=== PATIENT | female | born 1955 | race Caucasian/White ===

== ENCOUNTER → 2017-11-26 | Outpatient (CLI) | payer OTHER | END | disposition home or self-care (01) | LOC: LAB 10:02 | PROVIDERS: ATTEND Neurological Surgery | DX: Z01.818 Encounter for other preprocedural examination (principal); R91.8 Other nonspecific abnormal finding of lung field; M51.36 Other intervertebral disc degeneration, lumbar region | CPT/HCPCS: 71046 ==

== ENCOUNTER 2017-12-03 05:39 | Inpatient (IN) | payer OTHER ==
[~2017-12-03] VITALS: Ht 185.4 cm; Wt 65.7 kg
[2017-12-03] MEDS ORDERED: LACTATED RINGERS 1,000 ML IV SCH (06:06)
[2017-12-03] MEDS ORDERED: TIOT18CA INH (06:09)
[2017-12-03] MEDS ORDERED: SUMA25TA4 PO (06:09)
[2017-12-03] MEDS ORDERED: ALBU2TAB PO (06:09)
[2017-12-03] MEDS ORDERED: FLUT1AER INH (06:09)
[2017-12-03] MEDS ORDERED: GABA300C10 PO (06:09)
[2017-12-03] MEDS ORDERED: THROMBIN 20,000 UNIT VIAL TP ONE (06:22)
[2017-12-03] MEDS ORDERED: HEPARIN 1,000 UNITS/ML, 30ML ONE ×2 (06:22→07:36)
[2017-12-03] MEDS ORDERED: BACITRACIN 50,000 UNIT ONE (06:23)
[2017-12-03] MEDS ORDERED: MIDAZOLAM 1 MG/ML, 2ML ONE (06:33)
[2017-12-03] MEDS ORDERED: FENTANYL PF 250 MCG/5ML ONE (06:33)
[2017-12-03 06:39] VITALS: BP 116/70
[2017-12-03] MEDS ORDERED: OxyconTIN ER 10 MG TAB.ER ONE (06:57)
[2017-12-03] MEDS ORDERED: ACETAMINOPHEN 500 MG TABLET ONE (06:57)
[2017-12-03] MEDS ORDERED: ACETAMINOPHEN 500 MG TABLET PO ONE (07:00)
[2017-12-03] MEDS ORDERED: GABAPENTIN 300 MG CAPSULE PO ONE (07:00)
[2017-12-03] MEDS ORDERED: OxyconTIN ER 10 MG TAB.ER PO ONE (07:00)
[2017-12-03] MEDS ORDERED: PROPOFOL 10 MG/ML, 20ML ONE (07:11)
[2017-12-03] MEDS ORDERED: DEXAMETHASONE 4 MG/ML, 1ML ONE (07:11)
[2017-12-03] MEDS ORDERED: CEFAZOLIN 1,000 MG ONE (07:11)
[2017-12-03] MEDS ORDERED: EPHEDRINE 50 MG/ML, 1ML ONE (07:11)
[2017-12-03] MEDS ORDERED: ROCURONIUM 10 MG/ML,10ML ONE (07:11)
[2017-12-03] MEDS ORDERED: HYDROmorphone 1 MG/ML, 1ML IV PRN (08:00)
[2017-12-03] MEDS ORDERED: OXYcodone 5 MG/5 ML ORAL.SOL UDC PO PRN (08:00)
[2017-12-03] MEDS ORDERED: MEPERIDINE/PF 25MG/0.5ML IVPush PRN (08:00)
[2017-12-03] MEDS ORDERED: ALBUTEROL SULFATE 2.5 MG/3 ML NPPB PRN (08:00)
[2017-12-03] MEDS ORDERED: hydrALAzine 20 MG/ML, 1ML IV PRN (08:00)
[2017-12-03] MEDS ORDERED: LABETALOL 5MG/ML, 20ML IV PRN ×2 (08:00→11:30)
[2017-12-03] MEDS ORDERED: PROMETHAZINE 25 MG/ML, 1ML IV PRN (08:00)
[2017-12-03] MEDS ORDERED: LORazepam 2 MG/ML, 1ML IVPush PRN (08:00)
[2017-12-03] MEDS ORDERED: PROMETHAZINE 12.5 MG SUPP PR PRN (08:00)
[2017-12-03] MEDS ORDERED: OXYcodone 5 MG/5 ML ORAL.SOL UDC ONE (09:32)
[2017-12-03] MEDS ORDERED: FENTANYL PF 100 MCG/2ML ONE (09:32)
[2017-12-03] MEDS: FENTANYL PF 100 MCG/2ML IV PRN ×3 (09:38→09:56)
[2017-12-03] MEDS ORDERED: METHOCARBAMOL 750 MG TABLET ONE (10:11)
[2017-12-03] MEDS ORDERED: METHOCARBAMOL 750 MG TABLET PO PRN ×2 (10:30→11:30)
[2017-12-03 10:40] VITALS: BP 113/69
[2017-12-03] MEDS ORDERED: HYDROcodone/APAP 5/325 TABLET PO PRN (11:30)
[2017-12-03] MEDS ORDERED: ONDANSETRON ODT 4 MG PO PRN (11:30)
[2017-12-03] MEDS ORDERED: ALBUTEROL 4 MG TABLET PO PRN (11:30)
[2017-12-03] MEDS ORDERED: DIPHENHYDRAMINE 50 MG/ML, 1ML IV PRN (11:30)
[2017-12-03] MEDS ORDERED: morphine SULFATE 10 MG/ML, 1ML IV PRN (11:30)
[2017-12-03] MEDS ORDERED: MAGNESIUM HYDROXIDE 8%, 30ML UDC PO PRN (11:30)
[2017-12-03] MEDS ORDERED: BISACODYL 10 MG SUPP PR PRN (11:30)
[2017-12-03] MEDS ORDERED: ONDANSETRON 2MG/ML, 2ML IV PRN (11:30)
[2017-12-03] MEDS: HYDROcodone/APAP 10/325 MG TABLET PO PRN ×4 (12:57→23:35)
[2017-12-03] MEDS: METOCLOPRAMIDE 5 MG/ML, 2ML IV SCH ×2 (12:57→20:45)
[2017-12-03] MEDS ORDERED: ALBUTEROL/IPRATROPIUM 2.5MG/0.5MG, 3 ML NPPB PRN (13:30)
[2017-12-03 13:31] VITALS: BP 93/53
[2017-12-03] MEDS: CEFAZOLIN PMX 1GM/50ML 50 ML IVPB SCH ×2 (14:48→23:36)
[2017-12-03] MEDS: D5%-0.9% NACL+KCL 20MEQ 1,000 ML IV SCH ×2 (14:48→21:30)
[2017-12-03] MEDS: GABAPENTIN 300 MG CAPSULE PO SCH ×2 (17:14→20:46)
[2017-12-03 18:36] VITALS: BP 90/92
[2017-12-03] MEDS: FAMOTIDINE 20 MG TABLET PO SCH (20:45)
[2017-12-04 00:02] VITALS: BP 97/52
[2017-12-04 04:00] VITALS: BP 96/52
[2017-12-04] MEDS: METOCLOPRAMIDE 5 MG/ML, 2ML IV SCH (04:43)
[2017-12-04] MEDS: HYDROcodone/APAP 10/325 MG TABLET PO PRN ×4 (04:43→22:14)
[2017-12-04 05:13] LABS: BASOPHILS # (AUTO) 0.01 x10^3/uL (0-0.1); BASOPHILS % (AUTO) 0 % (0-1); EOSINOPHILS # (AUTO) 0.07 x10^3/uL (0-0.4); EOSINOPHILS % (AUTO) 1 % (1-7); LYMPHOCYTES # (AUTO) 1.54 x10^3/uL (1-3.4); LYMPHOCYTES % (AUTO) 21 % (22-44); MD NO; MEAN CORPUSCULAR HGB CONC 33.1 g/dL (32.4-35.8); MEAN CORPUSCULAR VOLUME 96.7 fL (80-100); MEAN PLATELET VOLUME 7.5 fL (7.4-10.4); MONOCYTES # (AUTO) 0.83 x10^3/uL (0.2-0.8); MONOCYTES % (AUTO) 11 % (2-9); NEUTROPHILS # (AUTO) 4.93 x10^3/uL (1.8-6.8); NEUTROPHILS % (AUTO) 67 % (42-75); PLATELET COUNT 201 x10^3/uL (130-400); RED BLOOD COUNT 3.48 x10^6/uL (3.82-5.3); RED CELL DISTRIBUTION WIDTH 14.3 % (9.6-15.2)
[2017-12-04 05:25] LABS: ANION GAP 6 mmol/L (5-15); CALCIUM 8.3 mg/dL (8.5-10.1); CHLORIDE 108 mmol/L (98-107); CREATININE 0.78 mg/dL (0.55-1.02)
[2017-12-04] MEDS: ENOXAPARIN 30 MG/0.3 ML SQ SCH ×2 (06:46→17:31)
[2017-12-04 07:07] VITALS: BP 92/55
[2017-12-04] MEDS: D5%-0.9% NACL+KCL 20MEQ 1,000 ML IV SCH ×2 (07:30→17:30)
[2017-12-04] MEDS: FLUTICASONE/VILANTEROL 100-25MCG/INH INH SCH (09:00)
[2017-12-04] MEDS: TEMPLATE NON-FORMULARY MED. (SPIRIVA 1 INH) INH SCH (09:00)
[2017-12-04] MEDS: GABAPENTIN 300 MG CAPSULE PO SCH ×3 (09:21→22:09)
[2017-12-04] MEDS: FAMOTIDINE 20 MG TABLET PO SCH ×2 (09:21→22:09)
[2017-12-04] MEDS: SENNA/DOCUSATE TABLET PO SCH (09:21)
[2017-12-04] MEDS: DOXYCYCLINE 100MG TABLET PO SCH ×2 (09:57→22:09)
[2017-12-04] MEDS: SUMATRIPTAN 25 MG TABLET PO SCH (09:57)
[2017-12-04] MEDS ORDERED: METOCLOPRAMIDE 5 MG/ML, 2ML IV PRN (11:30)
[2017-12-04 18:40] VITALS: BP 107/64
[2017-12-04] MEDS: DIPHENHYDRAMINE 25 MG CAPSULE PO PRN (22:09)
[2017-12-05 02:02] VITALS: BP 95/54
[2017-12-05] MEDS: DIPHENHYDRAMINE 25 MG CAPSULE PO PRN ×2 (02:28→22:12)
[2017-12-05] MEDS: D5%-0.9% NACL+KCL 20MEQ 1,000 ML IV SCH ×3 (03:27→23:30)
[2017-12-05 05:16] LABS: BASOPHILS # (AUTO) 0.03 x10^3/uL (0-0.1); BASOPHILS % (AUTO) 0 % (0-1); EOSINOPHILS # (AUTO) 0.22 x10^3/uL (0-0.4); EOSINOPHILS % (AUTO) 2 % (1-7); LYMPHOCYTES # (AUTO) 1.26 x10^3/uL (1-3.4); LYMPHOCYTES % (AUTO) 14 % (22-44); MD NO; MEAN CORPUSCULAR HEMOGLOBIN 31.6 pg (27.0-34.8); MEAN CORPUSCULAR HGB CONC 33.1 g/dL (32.4-35.8); MEAN CORPUSCULAR VOLUME 95.6 fL (80-100); MEAN PLATELET VOLUME 7.8 fL (7.4-10.4); MONOCYTES # (AUTO) 1.19 x10^3/uL (0.2-0.8); MONOCYTES % (AUTO) 13 % (2-9); NEUTROPHILS # (AUTO) 6.58 x10^3/uL (1.8-6.8); NEUTROPHILS % (AUTO) 71 % (42-75); PLATELET COUNT 190 x10^3/uL (130-400); RED BLOOD COUNT 3.57 x10^6/uL (3.82-5.3)
[2017-12-05 05:28] LABS: ANION GAP 7 mmol/L (5-15); CALCIUM 8.7 mg/dL (8.5-10.1); CHLORIDE 105 mmol/L (98-107); CREATININE 0.82 mg/dL (0.55-1.02)
[2017-12-05] MEDS: ENOXAPARIN 30 MG/0.3 ML SQ SCH ×2 (06:23→18:17)
[2017-12-05] MEDS: HYDROcodone/APAP 10/325 MG TABLET PO PRN ×2 (06:23→20:24)
[2017-12-05 08:52] LABS: INTERNATIONAL NORMALIZED RATIO 1.05 (0.93-1.1); PROTHROMBIN TIME 10.8 Seconds (9.6-11.5)
[2017-12-05] MEDS: TEMPLATE NON-FORMULARY MED. (SPIRIVA 1 INH) INH SCH (09:00)
[2017-12-05] MEDS: FLUTICASONE/VILANTEROL 100-25MCG/INH INH SCH (09:00)
[2017-12-05 09:44] VITALS: BP 118/69
[2017-12-05] MEDS: GABAPENTIN 300 MG CAPSULE PO SCH ×3 (09:52→20:24)
[2017-12-05] MEDS: FAMOTIDINE 20 MG TABLET PO SCH ×2 (09:52→20:24)
[2017-12-05] MEDS: DOXYCYCLINE 100MG TABLET PO SCH ×2 (09:52→20:24)
[2017-12-05] MEDS: SENNA/DOCUSATE TABLET PO SCH (09:52)
[2017-12-05] MEDS: SUMATRIPTAN 25 MG TABLET PO SCH (09:52)
[2017-12-05 13:45] VITALS: BP 103/63
[2017-12-05 18:50] VITALS: BP 100/68
[2017-12-06 00:53] VITALS: BP 113/52
[2017-12-06] MEDS: ENOXAPARIN 30 MG/0.3 ML SQ SCH (01:31)
[2017-12-06 05:19] LABS: BASOPHILS # (AUTO) 0.02 x10^3/uL (0-0.1); BASOPHILS % (AUTO) 0 % (0-1); EOSINOPHILS % (AUTO) 1 % (1-7); LYMPHOCYTES # (AUTO) 1.18 x10^3/uL (1-3.4); LYMPHOCYTES % (AUTO) 13 % (22-44); MD NO; MEAN CORPUSCULAR HEMOGLOBIN 31.2 pg (27.0-34.8); MEAN CORPUSCULAR VOLUME 94.4 fL (80-100); MEAN PLATELET VOLUME 7.5 fL (7.4-10.4); MONOCYTES # (AUTO) 1.16 x10^3/uL (0.2-0.8); MONOCYTES % (AUTO) 13 % (2-9); NEUTROPHILS # (AUTO) 6.69 x10^3/uL (1.8-6.8); NEUTROPHILS % (AUTO) 73 % (42-75); PLATELET COUNT 206 x10^3/uL (130-400); RED BLOOD COUNT 3.67 x10^6/uL (3.82-5.3); RED CELL DISTRIBUTION WIDTH 13.8 % (9.6-15.2)
[2017-12-06 05:29] LABS: ANION GAP 8 mmol/L (5-15); CALCIUM 8.7 mg/dL (8.5-10.1); CHLORIDE 105 mmol/L (98-107); CREATININE 0.77 mg/dL (0.55-1.02)
[2017-12-06] MEDS ORDERED: EPINEPHRINE 1 MG/ML, 1ML ONE (06:23)
[2017-12-06] MEDS ORDERED: THROMBIN 5,000 UNIT VIAL TP ONE (06:23)
[2017-12-06] MEDS ORDERED: BUPIVACAINE/PF 0.5% ONE (06:23)
[2017-12-06] MEDS ORDERED: BACITRACIN 50,000 UNIT ONE (06:23)
[2017-12-06] MEDS ORDERED: BUPIVACAINE 0.25% ONE (06:23)
[2017-12-06] MEDS ORDERED: MIDAZOLAM 1 MG/ML, 2ML ONE (06:35)
[2017-12-06] MEDS ORDERED: FENTANYL PF 250 MCG/5ML ONE (06:36)
[2017-12-06] MEDS ORDERED: PROPOFOL 50 ML ONE ×3 (06:37→10:00)
[2017-12-06] MEDS ORDERED: PROPOFOL 10 MG/ML, 20ML ONE (06:37)
[2017-12-06] MEDS ORDERED: LIDOCAINE-MPF 2% ,5ML ONE (06:37)
[2017-12-06] MEDS ORDERED: SUCCINYLCHOLINE 20 MG/ML, 10ML ONE (06:38)
[2017-12-06] MEDS ORDERED: CEFAZOLIN 1,000 MG ONE ×2 (06:38)
[2017-12-06] MEDS ORDERED: WATER-INJECTION,STERILE 10 ML IV ONE (06:38)
[2017-12-06] MEDS ORDERED: PHENYLEPHRINE 10 MG/ML ONE ×3 (06:40→08:51)
[2017-12-06] MEDS ORDERED: REMIFENTANIL 2 MG ONE ×2 (06:43→09:26)
[2017-12-06] MEDS ORDERED: DEXAMETHASONE 4 MG/ML, 1ML ONE ×2 (06:44)
[2017-12-06] MEDS ORDERED: OxyconTIN ER 20 MG TAB.ER ONE (06:50)
[2017-12-06] MEDS ORDERED: ACETAMINOPHEN 500 MG TABLET ONE (06:51)
[2017-12-06] MEDS ORDERED: HEPARIN 1,000 UNITS/ML, 30ML ONE (06:57)
[2017-12-06] MEDS ORDERED: METOPROLOL 1 MG/ML, 5ML ONE (07:09)
[2017-12-06] MEDS ORDERED: ACETAMINOPHEN 500 MG TABLET PO ONE (07:30)
[2017-12-06] MEDS ORDERED: GABAPENTIN 300 MG CAPSULE PO ONE ×2 (07:30)
[2017-12-06] MEDS ORDERED: OxyconTIN ER 20 MG TAB.ER PO ONE (07:30)
[2017-12-06] MEDS ORDERED: ONDANSETRON ODT 8 MG PO ONE (07:30)
[2017-12-06] MEDS ORDERED: AMIODARONE 50 MG/ML, 3ML ONE (08:00)
[2017-12-06] MEDS ORDERED: BUPIVACAINE/PF 0.5% INFIL ONE ×2 (08:19→08:20)
[2017-12-06] MEDS ORDERED: EPINEPHRINE 1 MG/ML, 1ML INFIL ONE (08:21)
[2017-12-06] MEDS ORDERED: BUPIVACAINE/PF 0.25% EPIDPUSH ONE (08:22)
[2017-12-06] MEDS ORDERED: FENTANYL PF 100 MCG/2ML EPIDPUSH ONE (08:22)
[2017-12-06] MEDS: GABAPENTIN 300 MG CAPSULE PO SCH ×3 (09:00→20:15)
[2017-12-06] MEDS ORDERED: FENTANYL PF 100 MCG/2ML ONE (10:01)
[2017-12-06] MEDS ORDERED: IPRATROPIUM 0.5 MG/2.5 ML INHA HHN SCH (12:00)
[2017-12-06] MEDS ORDERED: SENNA/DOCUSATE TABLET PO PRN (12:00)
[2017-12-06] MEDS ORDERED: PROMETHAZINE 25 MG/ML, 1ML IM PRN (12:00)
[2017-12-06] MEDS ORDERED: LABETALOL 5MG/ML, 20ML IVPush PRN (12:00)
[2017-12-06] MEDS ORDERED: MEPERIDINE/PF 25MG/0.5ML IVPush PRN (12:00)
[2017-12-06] MEDS ORDERED: PHARMACY MAY ADJ FOR RENAL FX MC PRN (12:00)
[2017-12-06] MEDS ORDERED: DIPHENHYDRAMINE 50 MG/ML, 1ML IVPush PRN (12:00)
[2017-12-06] MEDS ORDERED: ALBUTEROL SULFATE 2 MG PO PRN (12:00)
[2017-12-06] MEDS ORDERED: BISACODYL 10 MG SUPP PR PRN (12:00)
[2017-12-06] MEDS ORDERED: morphine SULFATE 10 MG/ML, 1ML IV PRN (12:00)
[2017-12-06] MEDS ORDERED: EPHEDRINE 50 MG/ML, 1ML IVPush PRN (12:00)
[2017-12-06] MEDS ORDERED: morphine SULFATE 10 MG/ML, 1ML IVPush PRN (12:00)
[2017-12-06] MEDS ORDERED: ALBUTEROL SULFATE 2.5 MG/3 ML NPPB PRN (12:00)
[2017-12-06] MEDS ORDERED: ACETAMINOPHEN 325 MG TABLET PO PRN (12:00)
[2017-12-06] MEDS ORDERED: OXYcodone 5 MG/5 ML ORAL.SOL UDC PO PRN (12:00)
[2017-12-06] MEDS ORDERED: PROMETHAZINE 25 MG/ML, 1ML IV PRN (12:00)
[2017-12-06] MEDS ORDERED: FENTANYL PF 100 MCG/2ML IV PRN (12:00)
[2017-12-06 14:08] VITALS: BP 97/54
[2017-12-06] MEDS: D5%-0.9% NACL+KCL 20MEQ 1,000 ML IV SCH ×2 (14:12→14:43)
[2017-12-06] MEDS ORDERED: SUMATRIPTAN 50 MG TABLET ONE (14:16)
[2017-12-06] MEDS: FAMOTIDINE 20 MG TABLET PO SCH ×2 (14:41→20:15)
[2017-12-06] MEDS: DOXYCYCLINE 100MG TABLET PO SCH ×2 (14:42→20:15)
[2017-12-06] MEDS: SUMATRIPTAN 25 MG TABLET PO SCH (14:42)
[2017-12-06] MEDS: SENNA/DOCUSATE TABLET PO SCH (14:42)
[2017-12-06] MEDS ORDERED: FLUT1AER INH (15:12)
[2017-12-06] MEDS: CEFAZOLIN PMX 1GM/50ML 50 ML IVPB SCH ×2 (15:31→23:37)
[2017-12-06 18:44] VITALS: BP 110/64
[2017-12-06] MEDS: HYDROcodone/APAP 5/325 TABLET PO PRN ×2 (20:15→21:02)
[2017-12-06] MEDS: SODIUM CHLORIDE FLUSH 10ML SYR IVF SCH (20:16)
[2017-12-07] VITALS: BP 103/59
[2017-12-07] MEDS: HYDROcodone/APAP 10/325 MG TABLET PO PRN ×3 (01:16→06:05)
[2017-12-07] MEDS: D5%-0.9% NACL+KCL 20MEQ 1,000 ML IV SCH ×4 (01:51→21:05)
[2017-12-07 03:52] VITALS: BP 102/62
[2017-12-07 05:27] LABS: BASOPHILS # (AUTO) 0.03 x10^3/uL (0-0.1); BASOPHILS % (AUTO) 0 % (0-1); EOSINOPHILS # (AUTO) 0.02 x10^3/uL (0-0.4); EOSINOPHILS % (AUTO) 0 % (1-7); LYMPHOCYTES # (AUTO) 1.12 x10^3/uL (1-3.4); LYMPHOCYTES % (AUTO) 12 % (22-44); MD NO; MEAN CORPUSCULAR HEMOGLOBIN 32.2 pg (27.0-34.8); MEAN CORPUSCULAR HGB CONC 33.4 g/dL (32.4-35.8); MEAN CORPUSCULAR VOLUME 96.3 fL (80-100); MEAN PLATELET VOLUME 7.9 fL (7.4-10.4); MONOCYTES # (AUTO) 1.28 x10^3/uL (0.2-0.8); MONOCYTES % (AUTO) 13 % (2-9); NEUTROPHILS # (AUTO) 7.14 x10^3/uL (1.8-6.8); NEUTROPHILS % (AUTO) 75 % (42-75); PLATELET COUNT 188 x10^3/uL (130-400); RED BLOOD COUNT 2.87 x10^6/uL (3.82-5.3); RED CELL DISTRIBUTION WIDTH 13.9 % (9.6-15.2)
[2017-12-07] MEDS: FAMOTIDINE 20 MG TABLET PO SCH ×2 (07:58→20:59)
[2017-12-07] MEDS: GABAPENTIN 300 MG CAPSULE PO SCH ×3 (07:59→20:59)
[2017-12-07] MEDS: DOXYCYCLINE 100MG TABLET PO SCH ×2 (07:59→20:59)
[2017-12-07] MEDS: OXYcodone/APAP 5/325MG TABLET PO PRN ×3 (07:59→21:51)
[2017-12-07] MEDS: SUMATRIPTAN 25 MG TABLET PO SCH (08:01)
[2017-12-07] MEDS: SPIRIVA RESPIMAT 2.5 MCG/ACTUATION INH SCH (08:02)
[2017-12-07] MEDS: SODIUM CHLORIDE FLUSH 10ML SYR IVF SCH ×2 (08:02→20:59)
[2017-12-07] MEDS: FLUTICASONE/VILANTEROL 100-25MCG/INH INH SCH (08:02)
[2017-12-07] MEDS: SENNA/DOCUSATE TABLET PO SCH (08:06)
[2017-12-07 08:12] VITALS: BP 110/64
[2017-12-07] MEDS ORDERED: HYDROmorphone 2MG TABLET PO PRN (08:30)
[2017-12-07] MEDS ORDERED: FLUTICASONE/VILANTEROL 100-25MCG/INH INH SCH (09:00)
[2017-12-07 12:45] VITALS: BP 108/66
[2017-12-07] MEDS: METHOCARBAMOL 750 MG TABLET PO PRN (16:25)
[2017-12-07 20:12] VITALS: BP 106/66
[2017-12-08 00:19] VITALS: BP 118/63
[2017-12-08] MEDS: OXYcodone/APAP 5/325MG TABLET PO PRN ×5 (01:52→19:23)
[2017-12-08 05:13] LABS: BASOPHILS # (AUTO) 0.01 x10^3/uL (0-0.1); BASOPHILS % (AUTO) 0 % (0-1); EOSINOPHILS # (AUTO) 0.18 x10^3/uL (0-0.4); EOSINOPHILS % (AUTO) 3 % (1-7); LYMPHOCYTES # (AUTO) 1.84 x10^3/uL (1-3.4); LYMPHOCYTES % (AUTO) 25 % (22-44); MD NO; MEAN CORPUSCULAR HEMOGLOBIN 31.9 pg (27.0-34.8); MEAN CORPUSCULAR HGB CONC 33.5 g/dL (32.4-35.8); MEAN CORPUSCULAR VOLUME 95.2 fL (80-100); MEAN PLATELET VOLUME 7.6 fL (7.4-10.4); MONOCYTES # (AUTO) 0.99 x10^3/uL (0.2-0.8); MONOCYTES % (AUTO) 14 % (2-9); NEUTROPHILS # (AUTO) 4.25 x10^3/uL (1.8-6.8); NEUTROPHILS % (AUTO) 59 % (42-75); PLATELET COUNT 204 x10^3/uL (130-400); RED CELL DISTRIBUTION WIDTH 13.9 % (9.6-15.2)
[2017-12-08] MEDS: GABAPENTIN 300 MG CAPSULE PO SCH ×3 (08:23→22:04)
[2017-12-08] MEDS: FAMOTIDINE 20 MG TABLET PO SCH ×2 (08:23→22:04)
[2017-12-08] MEDS: DOXYCYCLINE 100MG TABLET PO SCH ×2 (08:23→22:04)
[2017-12-08] MEDS: SENNA/DOCUSATE TABLET PO SCH (08:23)
[2017-12-08] MEDS: SUMATRIPTAN 25 MG TABLET PO SCH (08:24)
[2017-12-08] MEDS: SODIUM CHLORIDE FLUSH 10ML SYR IVF SCH ×2 (08:24→21:00)
[2017-12-08] MEDS: SPIRIVA RESPIMAT 2.5 MCG/ACTUATION INH SCH (08:24)
[2017-12-08] MEDS: FLUTICASONE/VILANTEROL 100-25MCG/INH INH SCH (08:24)
[2017-12-08 08:27] VITALS: BP 131/70
[2017-12-08 13:24] VITALS: BP 131/72
[2017-12-08] MEDS: METHOCARBAMOL 750 MG TABLET PO PRN ×2 (13:25→22:04)
[2017-12-08 18:46] VITALS: BP 110/66
[2017-12-09 00:16] VITALS: BP 125/67
[2017-12-09] MEDS: OXYcodone/APAP 5/325MG TABLET PO PRN ×2 (00:25→08:24)
[2017-12-09] MEDS ORDERED: MORPHINE SULFATE 4 MG/ML, 1ML ONE (00:29)
[2017-12-09 05:11] LABS: BASOPHILS # (AUTO) 0.03 x10^3/uL (0-0.1); BASOPHILS % (AUTO) 0 % (0-1); EOSINOPHILS # (AUTO) 0.23 x10^3/uL (0-0.4); EOSINOPHILS % (AUTO) 3 % (1-7); LYMPHOCYTES # (AUTO) 1.77 x10^3/uL (1-3.4); LYMPHOCYTES % (AUTO) 26 % (22-44); MD NO; MEAN CORPUSCULAR HEMOGLOBIN 31.5 pg (27.0-34.8); MEAN CORPUSCULAR HGB CONC 33.1 g/dL (32.4-35.8); MEAN PLATELET VOLUME 7.3 fL (7.4-10.4); MONOCYTES % (AUTO) 15 % (2-9); NEUTROPHILS % (AUTO) 55 % (42-75); PLATELET COUNT 222 x10^3/uL (130-400); RED BLOOD COUNT 2.77 x10^6/uL (3.82-5.3); RED CELL DISTRIBUTION WIDTH 13.5 % (9.6-15.2)
[2017-12-09 07:43] VITALS: BP 120/66
[2017-12-09] MEDS: FAMOTIDINE 20 MG TABLET PO SCH (08:24)
[2017-12-09] MEDS: SENNA/DOCUSATE TABLET PO SCH (08:24)
[2017-12-09] MEDS: DOXYCYCLINE 100MG TABLET PO SCH (08:24)
[2017-12-09] MEDS: GABAPENTIN 300 MG CAPSULE PO SCH (08:24)
[2017-12-09] MEDS: METHOCARBAMOL 750 MG TABLET PO PRN (08:26)
[2017-12-09] MEDS: SPIRIVA RESPIMAT 2.5 MCG/ACTUATION INH SCH (08:27)
[2017-12-09] MEDS: SODIUM CHLORIDE FLUSH 10ML SYR IVF SCH (08:27)
[2017-12-09] MEDS: FLUTICASONE/VILANTEROL 100-25MCG/INH INH SCH (08:27)
[2017-12-09] MEDS: SUMATRIPTAN 25 MG TABLET PO SCH (08:27)
[2017-12-09] MEDS ORDERED: ALBU2TAB PO (10:36)
[2017-12-09] MEDS ORDERED: OXYC-302 PO (10:38)
[2017-12-09 10:39] VITALS: BP 128/66
[2017-12-09] MEDS ORDERED: METH750T87 PO (10:39)
== END 2017-12-09 11:05 | disposition home or self-care (01) | DRG 455 ==
LOC: ORIP 05:39 → 4NOR 10:39 → 4WST 12-06 12:25 → 4NOR 12-08 13:15
PROVIDERS: ADMIT Neurological Surgery; ATTEND Neurological Surgery
PROC: 0SG30A0 Fusion of Lumbosacral Joint with Interbody Fusion Device, Anterior Approach, Anterior Column, Open Approach (ICD-10-PCS; 2017-12-03)
PROC: 0SB20ZZ Excision of Lumbar Vertebral Disc, Open Approach (ICD-10-PCS; 2017-12-03)
PROC: 0SB40ZZ Excision of Lumbosacral Disc, Open Approach (ICD-10-PCS; 2017-12-03)
PROC: 4A11X4G Monitoring of Peripheral Nervous Electrical Activity, Intraoperative, External Approach (ICD-10-PCS; 2017-12-03)
PROC: 0SG00A0 Fusion of Lumbar Vertebral Joint with Interbody Fusion Device, Anterior Approach, Anterior Column, Open Approach (ICD-10-PCS; principal; 2017-12-03 07:00)
PROC: 0SG10K1 Fusion of 2 or more Lumbar Vertebral Joints with Nonautologous Tissue Substitute, Posterior Approach, Posterior Column, Open Approach (ICD-10-PCS; 2017-12-06)
PROC: 0SG00A0 Fusion of Lumbar Vertebral Joint with Interbody Fusion Device, Anterior Approach, Anterior Column, Open Approach (ICD-10-PCS; 2017-12-06)
PROC: 0SG30K1 Fusion of Lumbosacral Joint with Nonautologous Tissue Substitute, Posterior Approach, Posterior Column, Open Approach (ICD-10-PCS; 2017-12-06)
PROC: 4A11X4G Monitoring of Peripheral Nervous Electrical Activity, Intraoperative, External Approach (ICD-10-PCS; 2017-12-06)
DX: M51.16 Intervertebral disc disorders with radiculopathy, lumbar region (principal); M41.80 Other forms of scoliosis, site unspecified; I48.91 Unspecified atrial fibrillation; G89.29 Other chronic pain; M43.16 Spondylolisthesis, lumbar region; M47.26 Other spondylosis with radiculopathy, lumbar region; M48.062 Spinal stenosis, lumbar region with neurogenic claudication; M48.07 Spinal stenosis, lumbosacral region; M51.17 Intervertebral disc disorders with radiculopathy, lumbosacral region; F17.210 Nicotine dependence, cigarettes, uncomplicated
CPT/HCPCS: 36415; 72100; 72131; 74018; 80048; 85025; 85610; 86850; 86900; 93005; C1713; C1767; J0171; J0690; J1100; J1644; J1650; J2250; J2704; J3010; J3490; Q0162; C1760; C1762; J0282; J0330; J2270; J2370; J2765; J3480; J7120; Q0163

== ENCOUNTER 2017-12-27 12:17 | Inpatient (IN) | payer OTHER ==
[~2017-12-27] VITALS: Ht 188 cm; Wt 65.5 kg
[~2017-12-27 12:17] MED LIST: ALBU2TAB PO; BACITRACIN 50,000 UNIT ONE; BUPIVACAINE 0.25% ONE; BUPIVACAINE/PF 0.5% ONE; EPINEPHRINE 1 MG/ML, 1ML ONE; FLUT1AER INH; GABA300C10 PO; METH750T87 PO; OXYC-302 PO; SUMA25TA4 PO; THROMBIN 5,000 UNIT VIAL TP ONE; TIOT18CA INH
[2017-12-27] MEDS ORDERED: LACTATED RINGERS 1,000 ML IV SCH (12:57)
[2017-12-27] MEDS ORDERED: LIDOCAINE-MPF 1%, 2ML ONE (12:59)
[2017-12-27 13:01] VITALS: BP 136/79
[2017-12-27] MEDS ORDERED: MIDAZOLAM 1 MG/ML, 2ML ONE (15:14)
[2017-12-27] MEDS ORDERED: FENTANYL PF 250 MCG/5ML ONE (15:14)
[2017-12-27] MEDS ORDERED: FAMOTIDINE 20 MG TABLET ONE (15:25)
[2017-12-27] MEDS ORDERED: ONDANSETRON ODT 8 MG ONE (15:26)
[2017-12-27] MEDS ORDERED: LABETALOL 5MG/ML, 20ML IV PRN (15:30)
[2017-12-27] MEDS ORDERED: MEPERIDINE/PF 25MG/0.5ML IVPush PRN (15:30)
[2017-12-27] MEDS ORDERED: ONDANSETRON 2MG/ML, 2ML IVPush PRN ×2 (15:30→18:00)
[2017-12-27] MEDS ORDERED: FAMOTIDINE 20 MG TABLET PO ONE (15:30)
[2017-12-27] MEDS ORDERED: DIAZEPAM 5 MG/ML, 2ML IVPush PRN (15:30)
[2017-12-27] MEDS ORDERED: HYDROmorphone 1 MG/ML, 1ML IV PRN (15:30)
[2017-12-27] MEDS ORDERED: morphine SULFATE 10 MG/ML, 1ML IV PRN (15:30)
[2017-12-27] MEDS ORDERED: hydrALAzine 20 MG/ML, 1ML IV PRN (15:30)
[2017-12-27] MEDS ORDERED: PROMETHAZINE 12.5 MG SUPP PR PRN (15:30)
[2017-12-27] MEDS ORDERED: ONDANSETRON ODT 8 MG PO ONE (15:30)
[2017-12-27] MEDS ORDERED: OXYcodone 5 MG/5 ML ORAL.SOL UDC PO PRN (15:30)
[2017-12-27] MEDS ORDERED: DEXAMETHASONE 4 MG/ML, 1ML ONE ×2 (16:30)
[2017-12-27] MEDS ORDERED: CEFAZOLIN 1,000 MG ONE ×2 (16:32→16:35)
[2017-12-27] MEDS ORDERED: PROPOFOL 10 MG/ML, 20ML ONE (17:50)
[2017-12-27] MEDS ORDERED: ROCURONIUM 10MG/ML,5ML ONE (17:51)
[2017-12-27] MEDS ORDERED: PHARMACY MAY ADJ FOR RENAL FX MC PRN (18:00)
[2017-12-27] MEDS ORDERED: BISACODYL 10 MG SUPP PR PRN (18:00)
[2017-12-27] MEDS ORDERED: PROMETHAZINE 25 MG/ML, 1ML IM PRN (18:00)
[2017-12-27] MEDS ORDERED: DIPHENHYDRAMINE 50 MG/ML, 1ML IVPush PRN (18:00)
[2017-12-27] MEDS ORDERED: ALBUTEROL SULFATE 2.5 MG/3 ML NPPB PRN ×2 (18:00→18:30)
[2017-12-27] MEDS ORDERED: morphine SULFATE 10 MG/ML, 1ML IVPush PRN (18:00)
[2017-12-27] MEDS ORDERED: METHOCARBAMOL 750 MG TABLET PO PRN (18:00)
[2017-12-27] MEDS ORDERED: SENNA/DOCUSATE TABLET PO PRN (18:00)
[2017-12-27] MEDS ORDERED: ALBUTEROL SULFATE 2 MG PO PRN (18:00)
[2017-12-27] MEDS ORDERED: OXYcodone 5 MG/5 ML ORAL.SOL UDC ONE (18:07)
[2017-12-27] MEDS ORDERED: FENTANYL PF 100 MCG/2ML ONE (18:07)
[2017-12-27] MEDS: FENTANYL PF 100 MCG/2ML IV PRN ×2 (18:15→18:20)
[2017-12-27 19:45] VITALS: BP 112/56
[2017-12-27] MEDS: D5%-0.9% NACL+KCL 20MEQ 1,000 ML IV SCH (22:28)
[2017-12-27] MEDS: SODIUM CHLORIDE FLUSH 10ML SYR IVF SCH (22:28)
[2017-12-27] MEDS: CEFAZOLIN PMX 1GM/50ML 50 ML IVPB SCH (22:28)
[2017-12-27] MEDS: GABAPENTIN 300 MG CAPSULE PO SCH (22:29)
[2017-12-27] MEDS: HYDROcodone/APAP 5/325 TABLET PO PRN ×2 (22:29→23:57)
[2017-12-27 23:30] VITALS: BP 105/67
[2017-12-28 01:32] VITALS: BP 122/70
[2017-12-28] MEDS: HYDROcodone/APAP 10/325 MG TABLET PO PRN ×6 (03:51→23:29)
[2017-12-28 03:53] VITALS: BP 98/60
[2017-12-28] MEDS: CEFAZOLIN PMX 1GM/50ML 50 ML IVPB SCH (06:25)
[2017-12-28 06:49] VITALS: BP 102/54
[2017-12-28] MEDS: GABAPENTIN 300 MG CAPSULE PO SCH ×3 (07:51→21:05)
[2017-12-28] MEDS: SODIUM CHLORIDE FLUSH 10ML SYR IVF SCH ×2 (07:53→21:00)
[2017-12-28] MEDS: D5%-0.9% NACL+KCL 20MEQ 1,000 ML IV SCH ×2 (08:06→17:30)
[2017-12-28] MEDS: FLUTICASONE/VILANTEROL 100-25MCG/INH INH SCH (08:54)
[2017-12-28] MEDS ORDERED: SUMATRIPTAN 25 MG TABLET PO SCH (09:00)
[2017-12-28] MEDS: IPRATROPIUM 0.5 MG/2.5 ML INHA NPPB SCH ×3 (09:00→20:20)
[2017-12-28 14:31] VITALS: BP 102/51
[2017-12-28] MEDS ORDERED: SUMATRIPTAN 25 MG TABLET ONE (15:54)
[2017-12-28 20:58] VITALS: BP 124/72
[2017-12-29 01:59] VITALS: BP 111/61
[2017-12-29] MEDS ORDERED: ONDANSETRON ODT 4 MG ONE (02:09)
[2017-12-29] MEDS: ONDANSETRON ODT 4 MG PO PRN ×2 (02:11→14:43)
[2017-12-29] MEDS: D5%-0.9% NACL+KCL 20MEQ 1,000 ML IV SCH ×3 (04:00→21:17)
[2017-12-29] MEDS: IPRATROPIUM 0.5 MG/2.5 ML INHA NPPB SCH ×3 (07:00→19:59)
[2017-12-29 07:56] VITALS: BP 130/88
[2017-12-29] MEDS ORDERED: SUMATRIPTAN 25 MG TABLET ONE ×2 (08:00→08:54)
[2017-12-29] MEDS: SUMATRIPTAN 50 MG TABLET PO PRN ×2 (08:01→08:56)
[2017-12-29] MEDS ORDERED: SUMATRIPTAN 50 MG TABLET PO PRN (09:00)
[2017-12-29] MEDS: SODIUM CHLORIDE FLUSH 10ML SYR IVF SCH ×2 (09:00→21:00)
[2017-12-29] MEDS: FLUTICASONE/VILANTEROL 100-25MCG/INH INH SCH (09:00)
[2017-12-29] MEDS: GABAPENTIN 300 MG CAPSULE PO SCH ×3 (09:00→21:11)
[2017-12-29] MEDS ORDERED: SCOPOLAMINE PATCH, 1.5MG PATCH.TD72 TD ONE (09:30)
[2017-12-29] MEDS ORDERED: PROMETHAZINE 25 MG/ML, 1ML IM PRN (09:30)
[2017-12-29 13:19] VITALS: BP 130/71
[2017-12-29 14:43] VITALS: BP 131/75
[2017-12-29] MEDS ORDERED: [UNRECOGNIZED DRUG - OTHER] PO PRN (17:30)
[2017-12-29] MEDS ORDERED: [UNRECOGNIZED DRUG - OTHER] PO PRN ×2 (19:00)
[2017-12-29 19:31] VITALS: BP 122/72
[2017-12-29] MEDS: [UNRECOGNIZED DRUG - OTHER] PO PRN (21:11)
[2017-12-29] MEDS: GUAIFENESIN PO PRN (21:11)
[2017-12-29] MEDS: PHENYLEPHRINE PO PRN (21:11)
[2017-12-29] MEDS: ACETAMINOPHEN PO PRN (21:11)
[2017-12-30 01:38] VITALS: BP 121/69
[2017-12-30] MEDS: HYDROcodone/APAP 10/325 MG TABLET PO PRN (02:18)
[2017-12-30] MEDS: [UNRECOGNIZED DRUG - OTHER] PO PRN ×5 (02:21→23:18)
[2017-12-30] MEDS: ACETAMINOPHEN PO PRN ×5 (02:21→23:18)
[2017-12-30] MEDS: PHENYLEPHRINE PO PRN ×5 (02:21→23:18)
[2017-12-30] MEDS: GUAIFENESIN PO PRN ×5 (02:21→23:18)
[2017-12-30] MEDS: IPRATROPIUM 0.5 MG/2.5 ML INHA NPPB SCH ×5 (03:00→16:30)
[2017-12-30 06:50] VITALS: BP 100/65
[2017-12-30] MEDS ORDERED: LACTATED RINGERS 1,000 ML IVBOLUS ONE (08:30)
[2017-12-30] MEDS: FLUTICASONE/VILANTEROL 100-25MCG/INH INH SCH (09:00)
[2017-12-30] MEDS: GABAPENTIN 300 MG CAPSULE PO SCH ×3 (09:43→21:37)
[2017-12-30] MEDS: SODIUM CHLORIDE FLUSH 10ML SYR IVF SCH ×2 (09:43→21:37)
[2017-12-30] MEDS ORDERED: [UNRECOGNIZED DRUG - CODE] PO (12:12)
[2017-12-30 13:11] VITALS: BP 109/73
[2017-12-30] MEDS: D5%-0.9% NACL+KCL 20MEQ 1,000 ML IV SCH ×2 (14:03→23:10)
[2017-12-30 16:22] VITALS: BP 93/65
[2017-12-30 18:59] VITALS: BP 125/64
[2017-12-30 19:12] LABS: BASOPHILS # (AUTO) 0.02 x10^3/uL (0-0.1); BASOPHILS % (AUTO) 0 % (0-1); EOSINOPHILS # (AUTO) 0.04 x10^3/uL (0-0.4); EOSINOPHILS % (AUTO) 0 % (1-7); LYMPHOCYTES # (AUTO) 1.09 x10^3/uL (1-3.4); LYMPHOCYTES % (AUTO) 11 % (22-44); MD NO; MEAN CORPUSCULAR HEMOGLOBIN 30.9 pg (27.0-34.8); MEAN CORPUSCULAR HGB CONC 33.7 g/dL (32.4-35.8); MEAN CORPUSCULAR VOLUME 91.8 fL (80-100); MEAN PLATELET VOLUME 6.2 fL (7.4-10.4); MONOCYTES # (AUTO) 1.17 x10^3/uL (0.2-0.8); MONOCYTES % (AUTO) 12 % (2-9); NEUTROPHILS # (AUTO) 7.86 x10^3/uL (1.8-6.8); NEUTROPHILS % (AUTO) 77 % (42-75); PLATELET COUNT 378 x10^3/uL (130-400); RED CELL DISTRIBUTION WIDTH 14.1 % (9.6-15.2)
[2017-12-30 19:27] LABS: CALCIUM 8.9 mg/dL (8.5-10.1); CHLORIDE 106 mmol/L (98-107)
[2017-12-30 19:36] LABS: ALANINE AMINOTRANSFERASE 18 U/L (12-78); ALBUMIN 2.7 g/dL (3.4-5.0); ALKALINE PHOSPHATASE 138 U/L (45-117); ANION GAP 8 mmol/L (5-15); BILIRUBIN,TOTAL 0.5 mg/dL (0.2-1.0); CREATININE 0.69 mg/dL (0.55-1.02); TOTAL PROTEIN 5.9 g/dL (6.4-8.2); TROPONIN I < 0.015 ng/mL (0.000-0.045)
[2017-12-30 20:00] VITALS: BP 111/71
[2017-12-30] MEDS: METOPROLOL TARTRATE 25 MG TABLET PO SCH (21:37)
[2017-12-31] VITALS (7 sets, daily range): BP systolic 100–134; BP diastolic 63–80
[2017-12-31 01:11] LABS: TROPONIN I < 0.015 ng/mL (0.000-0.045)
[2017-12-31] MEDS: ACETAMINOPHEN PO PRN ×3 (03:52→16:37)
[2017-12-31] MEDS: [UNRECOGNIZED DRUG - OTHER] PO PRN ×3 (03:52→16:37)
[2017-12-31] MEDS: PHENYLEPHRINE PO PRN ×3 (03:52→16:37)
[2017-12-31] MEDS: GUAIFENESIN PO PRN ×3 (03:52→16:37)
[2017-12-31] MEDS ORDERED: MAGNESIUM SULFATE 1 GM in SODIUM CHLORIDE 0.9% 50 ML IV ONE (05:30)
[2017-12-31] MEDS: METOPROLOL TARTRATE 25 MG TABLET PO SCH ×2 (06:40→18:15)
[2017-12-31] MEDS: IPRATROPIUM 0.5 MG/2.5 ML INHA NPPB SCH ×3 (09:00→20:42)
[2017-12-31] MEDS: FLUTICASONE/VILANTEROL 100-25MCG/INH INH SCH (09:00)
[2017-12-31] MEDS: OXYcodone/APAP 5/325MG TABLET PO PRN ×3 (09:31→23:37)
[2017-12-31] MEDS: GABAPENTIN 300 MG CAPSULE PO SCH ×3 (09:31→20:50)
[2017-12-31] MEDS: SODIUM CHLORIDE FLUSH 10ML SYR IVF SCH ×2 (09:35→21:00)
[2017-12-31] MEDS: D5%-0.9% NACL+KCL 20MEQ 1,000 ML IV SCH (11:54)
[2017-12-31 12:02] LABS: FREE T4 (FREE THYROXINE) 1.31 ng/dL (0.76-1.46); THYROID STIMULATING HORMONE 1.16 mIU/L (0.358-3.740)
[2017-12-31] MEDS ORDERED: ENOXAPARIN 30 MG/0.3 ML SQ SCH (14:00)
[2017-12-31] MEDS ORDERED: METOPROLOL TARTRATE 25 MG TABLET PO ONE (14:00)
[2018-01-01] MEDS: D5%-0.9% NACL+KCL 20MEQ 1,000 ML IV SCH ×2 (01:57→12:31)
[2018-01-01 02:00] VITALS: BP 134/87
[2018-01-01] MEDS: IPRATROPIUM 0.5 MG/2.5 ML INHA NPPB SCH ×4 (02:35→20:23)
[2018-01-01] MEDS: OXYcodone/APAP 5/325MG TABLET PO PRN ×2 (04:38→20:53)
[2018-01-01] MEDS: METOPROLOL TARTRATE 25 MG TABLET PO SCH ×3 (04:38→16:45)
[2018-01-01 05:05] LABS: ALBUMIN 2.7 g/dL (3.4-5.0); ANION GAP 9 mmol/L (5-15); CALCIUM 8.5 mg/dL (8.5-10.1); CHLORIDE 107 mmol/L (98-107)
[2018-01-01 05:08] LABS: ALANINE AMINOTRANSFERASE 20 U/L (12-78); ALKALINE PHOSPHATASE 138 U/L (45-117); BILIRUBIN,TOTAL 0.5 mg/dL (0.2-1.0); CREATININE 0.61 mg/dL (0.55-1.02); TOTAL PROTEIN 5.9 g/dL (6.4-8.2)
[2018-01-01 05:09] LABS: BASOPHILS # (AUTO) 0.06 x10^3/uL (0-0.1); BASOPHILS % (AUTO) 1 % (0-1); EOSINOPHILS % (AUTO) 3 % (1-7); LYMPHOCYTES # (AUTO) 1.79 x10^3/uL (1-3.4); LYMPHOCYTES % (AUTO) 25 % (22-44); MD NO; MEAN CORPUSCULAR HEMOGLOBIN 30.5 pg (27.0-34.8); MEAN CORPUSCULAR HGB CONC 33.1 g/dL (32.4-35.8); MEAN CORPUSCULAR VOLUME 92.3 fL (80-100); MEAN PLATELET VOLUME 6.9 fL (7.4-10.4); MONOCYTES # (AUTO) 0.84 x10^3/uL (0.2-0.8); MONOCYTES % (AUTO) 12 % (2-9); NEUTROPHILS # (AUTO) 4.32 x10^3/uL (1.8-6.8); NEUTROPHILS % (AUTO) 60 % (42-75); PLATELET COUNT 368 x10^3/uL (130-400); RED BLOOD COUNT 3.12 x10^6/uL (3.82-5.3); RED CELL DISTRIBUTION WIDTH 14.9 % (9.6-15.2)
[2018-01-01 06:50] VITALS: BP 121/72
[2018-01-01] MEDS: FLUTICASONE/VILANTEROL 100-25MCG/INH INH SCH (08:15)
[2018-01-01] MEDS: GABAPENTIN 300 MG CAPSULE PO SCH ×3 (08:15→20:53)
[2018-01-01] MEDS: GUAIFENESIN HOMEMEDPO PRN ×2 (08:16→16:45)
[2018-01-01] MEDS: PHENYLEPHRINE HCL HOMEMEDPO PRN ×2 (08:16→16:45)
[2018-01-01] MEDS: ACETAMINOPHEN HOMEMEDPO PRN ×2 (08:16→16:45)
[2018-01-01] MEDS: SODIUM CHLORIDE FLUSH 10ML SYR IVF SCH ×2 (08:16→21:00)
[2018-01-01] MEDS ORDERED: TIOT4MIS5 IH (09:47)
[2018-01-01] MEDS: HYDROcodone/APAP 5/325 TABLET PO PRN (12:31)
[2018-01-01 13:02] VITALS: BP 118/64
[2018-01-01] MEDS ORDERED: ENOXAPARIN 40 MG/0.4 ML SQ SCH (14:00)
[2018-01-01] MEDS ORDERED: METOPROLOL TARTRATE 25 MG TABLET PO ONE (18:00)
[2018-01-01] MEDS ORDERED: METHOCARBAMOL 500 MG TABLET PO PRN (18:00)
[2018-01-01 19:48] VITALS: BP 104/70
[2018-01-01] MEDS: METOPROLOL TARTRATE 50 MG TABLET PO SCH (20:54)
[2018-01-02 02:00] VITALS: BP 107/62
[2018-01-02] MEDS: OXYcodone/APAP 5/325MG TABLET PO PRN (02:00)
[2018-01-02] MEDS ORDERED: IPRATROPIUM 0.5 MG/2.5 ML INHA NPPB SCH (03:00)
[2018-01-02 05:25] LABS: BASOPHILS # (AUTO) 0.06 x10^3/uL (0-0.1); BASOPHILS % (AUTO) 1 % (0-1); EOSINOPHILS # (AUTO) 0.29 x10^3/uL (0-0.4); EOSINOPHILS % (AUTO) 4 % (1-7); LYMPHOCYTES # (AUTO) 1.94 x10^3/uL (1-3.4); LYMPHOCYTES % (AUTO) 27 % (22-44); MD NO; MEAN CORPUSCULAR HEMOGLOBIN 30.6 pg (27.0-34.8); MEAN CORPUSCULAR VOLUME 92.8 fL (80-100); MEAN PLATELET VOLUME 6.8 fL (7.4-10.4); MONOCYTES # (AUTO) 0.73 x10^3/uL (0.2-0.8); MONOCYTES % (AUTO) 10 % (2-9); NEUTROPHILS # (AUTO) 4.07 x10^3/uL (1.8-6.8); NEUTROPHILS % (AUTO) 57 % (42-75); PLATELET COUNT 361 x10^3/uL (130-400); RED BLOOD COUNT 2.99 x10^6/uL (3.82-5.3); RED CELL DISTRIBUTION WIDTH 14.5 % (9.6-15.2)
[2018-01-02 05:34] LABS: CHLORIDE 109 mmol/L (98-107)
[2018-01-02 05:52] LABS: ALBUMIN 2.6 g/dL (3.4-5.0); ANION GAP 10 mmol/L (5-15); CALCIUM 8.8 mg/dL (8.5-10.1)
[2018-01-02 06:58] VITALS: BP 110/64
[2018-01-02] MEDS: FLUTICASONE/VILANTEROL 100-25MCG/INH INH SCH (09:00)
[2018-01-02] MEDS: GABAPENTIN 300 MG CAPSULE PO SCH (09:12)
[2018-01-02] MEDS: METOPROLOL TARTRATE 50 MG TABLET PO SCH (09:12)
[2018-01-02] MEDS: SODIUM CHLORIDE FLUSH 10ML SYR IVF SCH (09:12)
[2018-01-02] MEDS ORDERED: DIGOXIN 0.25 MG/ML, 2ML IVPush SCH (10:30)
[2018-01-02] MEDS ORDERED: SODIUM CHLORIDE 0.9% 1,000ML IVBOLUS ONE (10:30)
[2018-01-02 12:43] VITALS: BP 132/73
[2018-01-02] MEDS ORDERED: METOPROLOL TARTRATE 25 MG TABLET PO ONE (13:00)
[2018-01-02] MEDS ORDERED: SODIUM CHLORIDE 0.9%, 500ML IVBOLUS ONE (13:00)
== END 2018-01-02 13:47 | disposition left against medical advice (07) | DRG 28 ==
LOC: ORIP 12:17 → 4NOR 20:15 → 4WST 12-30 19:49
PROVIDERS: ADMIT Neurological Surgery; ATTEND Neurological Surgery
PROC: 01NB0ZZ Release Lumbar Nerve, Open Approach (ICD-10-PCS; 2017-12-27)
PROC: 0KU Muscles, Supplement (ICD-10-PCS; 2017-12-27)
PROC: 00UT0JZ Supplement Spinal Meninges with Synthetic Substitute, Open Approach (ICD-10-PCS; principal; 2017-12-27 17:15)
DX: G97.82 Other postprocedural complications and disorders of nervous system (principal); E43 Unspecified severe protein-calorie malnutrition; G96.19 Other disorders of meninges, not elsewhere classified; D68.69 Other thrombophilia; T81.30XA Disruption of wound, unspecified, initial encounter; G96.0 Cerebrospinal fluid leak; Z68.1 Body mass index [BMI] 19.9 or less, adult; I48.0 Paroxysmal atrial fibrillation; D64.9 Anemia, unspecified; D72.829 Elevated white blood cell count, unspecified; J44.9 Chronic obstructive pulmonary disease, unspecified; Y83.4 Other reconstructive surgery as the cause of abnormal reaction of the patient, or of later complication, without mention of misadventure at the time of the procedure; Y92.89 Other specified places as the place of occurrence of the external cause; Z82.49 Family history of ischemic heart disease and other diseases of the circulatory system; Z82.5 Family history of asthma and other chronic lower respiratory diseases
CPT/HCPCS: 36415; 71045; 80048; 80053; 82040; 83735; 84100; 84439; 84443; 84484; 85025; 93005; 93308; 93321; 93325; 94640; J0171; J0690; J1100; J1650; J2250; J2550; J2704; J3010; J3475; J3490; J7613; J7644; Q0162; C1781; J1160; J2270; J3480; J7030; J7120